=== PATIENT | female | born 1990 | race Caucasian/White ===

== ENCOUNTER → 2016-10-11 | Outpatient (CLI) | payer OTHER | LOC: LAB SRH 19:17 | DX: Z94.0 Kidney transplant status (principal); D84.9 Immunodeficiency, unspecified | CPT/HCPCS: 90074; 90185; 90291; 91171; 92331; 92668; 92670; 92715; 92860; 99789 ==

== ENCOUNTER 2017-01-14 19:09 | Outpatient (CLI) | payer OTHER | END 2017-01-14 23:00 | disposition home or self-care (01) | LOC: LAB SRH 19:09 | DX: D63.1 Anemia in chronic kidney disease (principal); N18.3 Chronic kidney disease, stage 3 (moderate) | CPT/HCPCS: 90074; 90185; 90291; 91171; 91610; 92715; 92860 ==

== ENCOUNTER 2017-04-17 19:11 | Outpatient (CLI) | payer OTHER | END 2017-04-17 23:00 | disposition home or self-care (01) | LOC: LAB SRH 19:11 | DX: N18.3 Chronic kidney disease, stage 3 (moderate) (principal) | CPT/HCPCS: 90074; 90185; 90291; 91171; 91610; 92668; 92670; 92715; 92860 ==